=== PATIENT | female | born 1970 | race American Indian/Alaskan Native ===

== ENCOUNTER 2017-02-19 09:16 | Outpatient (CLI) | payer OTHER ==
--- NOTE | 2017-02-19 10:49 | Mammography Report ---
Screening mammogram: This patient has a heterogeneously dense fibroglandular pattern with a generally symmetric distribution bilaterally. In the right CC projection there is a partially circumscribed area of focal appearing fibroglandular tissue in the central breast only having this contour in the CC projection. Comparison with prior exams in 2012 and 2013 demonstrated fibroglandular density in this area but not as discrete. The remainder of the breast pattern is otherwise unremarkable bilaterally with no significant changes. CAD used. Impression: Right breast asymmetry. Recommendation: Additional compression imaging of the right breast and ultrasound as needed. I would also suggest possible periodic screening ultrasound of this patient's breasts or 3-D mammography due to the general complexity of her breast pattern. BI-RADS CATEGORY: 0 = Needs additional imaging evaluation ACR BI-RADS MAMMOGRAPHIC CODES: 0 = Needs additional imaging evaluation; 1 = Negative; 2 = Benign; 3 = Probably benign; 4 = Suspicious; 5 = Malignant; 6 = Known biopsy-proven malignancy COMMENT: 1. Dense breast tissue, i.e., adenosis, fibrocystic changes, etc., may obscure an underlying neoplasm. 2. Approximately 10% of cancers are not detected with mammography. 3. A negative mammography report should not delay biopsy if a clinically suspicious mass is present.
== END 2017-02-19 09:17 | disposition home or self-care (01) ==
LOC: SPVWC 09:16
PROVIDERS: ATTEND Obstetrics & Gynecology
DX: Z12.31 Encounter for screening mammogram for malignant neoplasm of breast (principal)
CPT/HCPCS: 77067; G0202

== ENCOUNTER 2017-03-11 09:07 | Outpatient (CLI) | payer OTHER ==
--- NOTE | 2017-03-11 11:23 | Mammography Report ---
RIGHT DIGITAL DIAGNOSTIC MAMMOGRAM and RIGHT BREAST ULTRASOUND: 03/11/17 09:07:00 CLINICAL: Recalled for asymmetry. COMPARISON:02/19/17 screening FINDINGS: Lateralmedial and spot compression CC views were performed. Partial effacement of a retroareolar asymmetry on the CC view. The lateral view is negative. Ultrasound of the right breast (including all four quadrants and the retroareolar area) was performed and demonstrated normal fibroglandular and fatty structures. No mass, cyst or shadowing. IMPRESSION: Benign mammographic asymmetry. BI-RADS CATEGORY: 2 - - Benign RECOMMENDATION: Routine mammographic screening in one year. ACR BI-RADS MAMMOGRAPHIC CODES: 0 = Needs additional imaging evaluation; 1 = Negative; 2 = Benign; 3 = Probably benign; 4 = Suspicious; 5 = Malignant; 6 = Known biopsy-proven malignancy COMMENT: 1. Dense breast tissue, i.e., adenosis, fibrocystic changes, etc., may obscure an underlying neoplasm. 2. Approximately 10% of cancers are not detected with mammography. 3. A negative mammography report should not delay biopsy if a clinically suspicious mass is present. COMMENT: Patient follow-up letters are generated via our [employer] application.
== END 2017-03-11 09:08 | disposition home or self-care (01) ==
LOC: SPVWC 09:07
PROVIDERS: ATTEND Obstetrics & Gynecology
DX: N64.89 Other specified disorders of breast (principal); R92.8 Other abnormal and inconclusive findings on diagnostic imaging of breast
CPT/HCPCS: 76641; G0206